=== PATIENT | female | born 1965 | race Caucasian/White ===

== ENCOUNTER 2023-10-17 10:17 | Emergency (ER) | payer OTHER ==
[~2023-10-17] VITALS: Ht 149.9 cm; Wt 81.2 kg
[2023-10-17 10:34] VITALS: BP_SYST 177; PULSE 71; RESP 16; TEMP 96.9; O2SAT 98
[2023-10-17] MEDS: KETOROLAC TROMETHAMINE 60 MG/2 ML VIAL IM ONE (10:54)
[2023-10-17] MEDS ORDERED: IBUP-1971 PO (10:58)
[2023-10-17 11:33] VITALS: BP_SYST 155; PULSE 80; RESP 16; TEMP 97; O2SAT 98
== END 2023-10-17 11:50 | disposition home or self-care (01) ==
LOC: SED 10:17
DX: R59.1 Generalized enlarged lymph nodes (principal); R51.9 Headache, unspecified; I10 Essential (primary) hypertension; E11.9 Type 2 diabetes mellitus without complications; Z90.49 Acquired absence of other specified parts of digestive tract
CPT/HCPCS: 99283; 96372; 82948; J1885